=== PATIENT | male | born 2000 | race African-American/Black ===

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

== ENCOUNTER 2019-02-20 10:26 | Emergency (ER) | payer OTHER ==
[~2019-02-20] VITALS: Ht 185.4 cm; Wt 106.8 kg
[2019-02-20 10:29] VITALS: Ht 185.4 cm; Wt 106.8 kg
[2019-02-20 12:03] VITALS: BP 126/83
== END 2019-02-20 12:04 | disposition home or self-care (01) ==
LOC: D.ER 10:26
DX: B88.0 Other acariasis (principal)

== ENCOUNTER 2020-01-30 13:37 | Emergency (ER) | payer SELFPAY ==
[~2020-01-30] VITALS: Ht 185.4 cm; Wt 104.5 kg
[2020-01-30 14:11] VITALS: Ht 185.4 cm; Wt 104.5 kg
[2020-01-30] MEDS ORDERED: DEBROX OTIC15 ML EACH EAR (15:36)
[2020-01-30 15:39] VITALS: BP 129/79
== END 2020-01-30 15:41 | disposition home or self-care (01) ==
LOC: D.ER 13:37
DX: H61.23 Impacted cerumen, bilateral (principal); H92.02 Otalgia, left ear

== ENCOUNTER 2020-03-07 15:37 | Emergency (ER) | payer MEDICAID ==
[~2020-03-07] VITALS: Ht 185.4 cm; Wt 100.0 kg
[~2020-03-07 15:37] MED LIST: DEBROX OTIC15 ML EACH EAR
[2020-03-07 15:44] VITALS: Ht 185.4 cm; Wt 100.0 kg
[2020-03-07 17:19] LABS: BASOPHILS 0.1 % (0-2); EOSINOPHILS 0.2 % (0-7); HEMATOCRIT 51.8 % (42.0-54.0); HEMOGLOBIN 17.6 g/dL (13.5-17.5); IMMATURE GRANULOCYTES 0.2 % (0-5); LYMPHOCYTES 14.7 % (15-50); MCH 27.9 pg (26.0-34.0); MCV 82.1 fL (80.0-100.0); MEAN PLATELET VOLUME 10.1 fL (7.4-10.4); MONOCYTES 8.1 % (2-11); NEUTROPHILS 76.7 % (40-80); PLATELET COUNT 189 10x3/uL (130-400); RBC 6.31 10x6/uL (4.20-6.10); RDW 13.5 % (11.5-14.5); WBC 9.7 10x3/uL (4.8-10.8)
[2020-03-07 17:31] LABS: ANION GAP 12.4 mmol/L (8-16); CALCIUM 9.6 mg/dL (8.5-10.1); CARBON DIOXIDE 29.1 mmol/L (21.0-32.0); CREATININE - SERUM 1.3 mg/dL (0.6-1.3); POTASSIUM - SERUM 3.5 mmol/L (3.5-5.1)
[2020-03-07 17:37] LABS: ALBUMIN 4.7 g/dL (3.4-5.0); BILIRUBIN - TOTAL 0.96 mg/dL (0.2-1.3); PROTEIN - SERUM 9.1 g/dL (6.4-8.2)
[2020-03-07] MEDS ORDERED: BACTRIM 400-801 TAB PO (19:41)
[2020-03-07] MEDS ORDERED: TYLENOL W/CODEI1 TAB PO (19:41)
[2020-03-07] MEDS ORDERED: VIBRAMYCIN 100100 MG PO (19:41)
[2020-03-07 20:39] VITALS: BP 125/74
== END 2020-03-07 20:40 | disposition home or self-care (01) ==
LOC: D.ER 15:37
PROVIDERS: Family Medicine
DX: L02.31 Cutaneous abscess of buttock (principal)

== ENCOUNTER 2020-07-07 00:08 | Emergency (ER) | payer OTHER ==
[~2020-07-07] VITALS: Ht 185.4 cm; Wt 110.0 kg
[~2020-07-07 00:08] MED LIST changes: +BACTRIM 400-801 TAB PO; +TYLENOL W/CODEI1 TAB PO; +VIBRAMYCIN 100100 MG PO
[2020-07-07 00:12] VITALS: BP 147/75; Ht 185.4 cm; Wt 110.0 kg
[2020-07-07 00:54] LABS: HEMATOCRIT 46.8 % (42.0-54.0); HEMOGLOBIN 15.4 g/dL (13.5-17.5); MCH 27.2 pg (26.0-34.0); MCHC 32.9 g/dL (31.0-37.0); MCV 82.5 fL (80.0-100.0); MEAN PLATELET VOLUME 9.5 fL (7.4-10.4); NEUTROPHILS 68.9 % (40-80); PLATELET COUNT 193 10x3/uL (130-400); RBC 5.67 10x6/uL (4.20-6.10); RDW 13.7 % (11.5-14.5); WBC 6.6 10x3/uL (4.8-10.8)
[2020-07-07 01:02] LABS: CALC OSMOLALITY 285 mosm/kg (275-300); CALCIUM 8.8 mg/dL (8.5-10.1); CARBON DIOXIDE 27.6 mmol/L (21.0-32.0); CHLORIDE - SERUM 107 mmol/L (98-107); CREATININE - SERUM 1.1 mg/dL (0.6-1.3); GLUCOSE 94 mg/dL (74-106); POTASSIUM - SERUM 3.7 mmol/L (3.5-5.1); SODIUM 144 mmol/L (136-145); UREA NITROGEN 10 mg/dL (7-18); eGFR NON AFRICAN AMERICAN 90 mL/min (90-120)
[2020-07-07 01:22] LABS: ALKALINE PHOSPHATASE 49 U/L (30-120); ALT (SGPT) 16 U/L (10-68); BILIRUBIN - TOTAL 0.27 mg/dL (0.2-1.3); C-REACTIVE PROTEIN 2.9 mg/dL (0.0-0.9); FERRITIN 67 ng/mL (3-244); PROTEIN - SERUM 7.3 g/dL (6.4-8.2)
[2020-07-07] MEDS ORDERED: TESSALON PERLE100 MG PO (01:59)
[2020-07-07] MEDS ORDERED: OMNICEF300 MG PO (01:59)
[2020-07-07] MEDS ORDERED: ALBUTEROL SULF8.5 GM INH (01:59)
== END 2020-07-07 02:50 | disposition home or self-care (01) ==
LOC: D.ER 00:08
PROVIDERS: Family Medicine
DX: Z20.828 Contact with and (suspected) exposure to other viral communicable diseases (principal); R50.9 Fever, unspecified; J06.9 Acute upper respiratory infection, unspecified; Z72.0 Tobacco use; R06.02 Shortness of breath; R05 Cough

== ENCOUNTER 2020-07-09 23:40 | Emergency (ER) | payer OTHER ==
[~2020-07-09] VITALS: Ht 185.4 cm; Wt 65.9 kg
[~2020-07-09 23:40] MED LIST changes: +ALBUTEROL SULF8.5 GM INH; +OMNICEF300 MG PO; +TESSALON PERLE100 MG PO
[2020-07-09 23:42] VITALS: Ht 185.4 cm; Wt 65.9 kg
[2020-07-10 00:13] LABS: BASOPHILS 0.2 % (0-2); EOSINOPHILS 2.5 % (0-7); HEMATOCRIT 45.7 % (42.0-54.0); HEMOGLOBIN 15.3 g/dL (13.5-17.5); IMMATURE GRANULOCYTES 0.2 % (0-5); LYMPHOCYTES 48.8 % (15-50); MCH 27.2 pg (26.0-34.0); MCHC 33.5 g/dL (31.0-37.0); MCV 81.2 fL (80.0-100.0); MONOCYTES 9.7 % (2-11); NEUTROPHILS 38.6 % (40-80); PLATELET COUNT 221 10x3/uL (130-400); RBC 5.63 10x6/uL (4.20-6.10); RDW 13.8 % (11.5-14.5)
[2020-07-10 00:24] LABS: CALC OSMOLALITY 281 mosm/kg (275-300); CALCIUM 9.5 mg/dL (8.5-10.1); CARBON DIOXIDE 26.1 mmol/L (21.0-32.0); CHLORIDE - SERUM 105 mmol/L (98-107); CREATININE - SERUM 1.2 mg/dL (0.6-1.3); GLUCOSE 90 mg/dL (74-106); POTASSIUM - SERUM 3.5 mmol/L (3.5-5.1); SODIUM 142 mmol/L (136-145); UREA NITROGEN 11 mg/dL (7-18); eGFR NON AFRICAN AMERICAN 81 mL/min (90-120)
[2020-07-10 00:30] LABS: ALKALINE PHOSPHATASE 50 U/L (30-120); ALT (SGPT) 13 U/L (10-68); BILIRUBIN - TOTAL 0.41 mg/dL (0.2-1.3); MAGNESIUM - SERUM 2.2 mg/dL (1.8-2.4); PROTEIN - SERUM 7.7 g/dL (6.4-8.2)
[2020-07-10 00:32] LABS: UDS - AMPHET POSITIVE QUAL (NEGATIVE); UDS - BARB NEGATIVE QUAL (NEGATIVE); UDS - BENZO NEGATIVE QUAL (NEGATIVE); UDS - COCAINE NEGATIVE QUAL (NEGATIVE); UDS - OPIATE NEGATIVE QUAL (NEGATIVE); UDS - PCP NEGATIVE QUAL (NEGATIVE); UDS - THC POSITIVE QUAL (NEGATIVE)
[2020-07-10 00:40] LABS: BILIRUBIN NEGATIVE (NEGATIVE); KETONE NEGATIVE (NEGATIVE); NITRITE NEGATIVE (NEGATIVE); UROBILINOGEN NORMAL mg/dL (< 2)
[2020-07-10 00:41] LABS: BACTERIA FEW HPF (NONE SEEN); EPITHELIAL CELLS 0-5 /hpf (0-5); WHITE CELLS - URINE 0-5 HPF (0-1)
[2020-07-10] MEDS ORDERED: MACROBID100 MG PO (01:09)
[2020-07-10 03:08] VITALS: BP 124/69
== END 2020-07-10 03:09 | disposition home or self-care (01) ==
LOC: D.ER 23:40
PROVIDERS: Family Medicine
DX: F15.10 Other stimulant abuse, uncomplicated (principal); R46.89 Other symptoms and signs involving appearance and behavior; N39.0 Urinary tract infection, site not specified

== ENCOUNTER 2020-11-20 15:06 | Inpatient (IN) | payer OTHER ==
[~2020-11-20] VITALS: Ht 185.4 cm; Wt 98.6 kg
[~2020-11-20 15:06] MED LIST changes: +MACROBID100 MG PO
--- NOTE | 2020-11-20 16:41 | NUR ---
PT ASKED TO CONTACT MOTHER, mOTHER WAS CINTACTED BY THIS RN, STATES THAT IF PT STAYS OR NEED SSURGERY FOR HER TO PLEASE BE CONTACTED.
[2020-11-20 17:28] LABS: BASOPHILS 0.2 % (0-2); EOSINOPHILS 0.5 % (0-7); HEMATOCRIT 39.1 % (42.0-54.0); IMMATURE GRANULOCYTES 0.2 % (0-5); LYMPHOCYTE ABS# 1.24 10x3/uL (1.32-3.57); LYMPHOCYTES 19.7 % (15-50); MCH 27.5 pg (26.0-34.0); MCHC 33.2 g/dL (31.0-37.0); MCV 82.7 fL (80.0-100.0); MEAN PLATELET VOLUME 9.8 fL (7.4-10.4); MONOCYTES 14.6 % (2-11); NEUTROPHILS 64.8 % (40-80); PLATELET COUNT 195 10x3/uL (130-400); RBC 4.73 10x6/uL (4.20-6.10); RDW 13.9 % (11.5-14.5); WBC 6.3 10x3/uL (4.8-10.8)
[2020-11-20 17:37] LABS: APTT 25.1 SECONDS (22.8-39.4); INR 1.25 (0.85-1.17); PROTIME 14.6 SECONDS (11.6-15.0)
[2020-11-20 17:41] LABS: CALC OSMOLALITY 281 mosm/kg (275-300); CALCIUM 8.5 mg/dL (8.5-10.1); CHLORIDE - SERUM 109 mmol/L (98-107); CREATININE - SERUM 0.9 mg/dL (0.6-1.3); GLUCOSE 84 mg/dL (74-106); POTASSIUM - SERUM 3.7 mmol/L (3.5-5.1); SODIUM 142 mmol/L (136-145); UREA NITROGEN 13 mg/dL (7-18); eGFR NON AFRICAN AMERICAN > 90 mL/min (90-120)
[2020-11-20 17:47] LABS: ALBUMIN 3.5 g/dL (3.4-5.0); ALKALINE PHOSPHATASE 47 U/L (30-120); ALT (SGPT) 16 U/L (10-68); BILIRUBIN - TOTAL 0.83 mg/dL (0.2-1.3); PROTEIN - SERUM 5.9 g/dL (6.4-8.2)
[2020-11-20 18:24] VITALS: BP 124/69
--- NOTE | 2020-11-20 19:03 | NUR ---
PT REPORT GIVEN TO OSKAR SUTTON, WITH VERBAL UNDERSTANDING THE 2 MEDS ARE DUE AT THIS TIME. SHE AGREED TO SEND PT.
--- NOTE | 2020-11-20 20:00 | NUR ---
ADMIMITED TO ROOM FROM ER ALERT AND ORIENTIATED, IMOBLIZER IN PLACE TO LEFT KNEE, GOOD PEDAL PULSES NOTED, SEE SHIFT ASSESSMENT, CALL LIGHT IN REACH
[2020-11-20 20:10] VITALS: BP 129/80; Ht 185.4 cm; Wt 98.6 kg
[2020-11-21 04:13] VITALS: BP 102/60
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
[2020-11-21 06:58] VITALS: BP 115/65
--- NOTE | 2020-11-21 07:30 | NUR ---
RESTING QUIETLY WITH EYES CLOSED. NO NEEDS NOTED.
--- NOTE | 2020-11-21 12:00 | NUR ---
NO CHANGES AT THIS TIME. DENIES NEEDS.
[2020-11-21 12:38] VITALS: BP 114/61
--- NOTE | 2020-11-21 15:28 | NUR ---
URINE SPECIMEN COLLECTED. REQUESTED AND GIVEN 4MG MORPHINE SLOW IVP FOR C/O LEFT LEG PAIN LEVEL 6. WILL MONITOR.
[2020-11-21 16:44] LABS: BILIRUBIN NEGATIVE (NEGATIVE); KETONE LARGE mg/dL (NEGATIVE); NITRITE NEGATIVE (NEGATIVE); UROBILINOGEN NORMAL mg/dL (< 2)
[2020-11-21 16:54] LABS: WHITE CELLS - URINE 25-50 HPF (0-1)
[2020-11-21 16:55] LABS: BACTERIA FEW HPF (NONE SEEN); SQUAMOUS EPITHELIAL NONE SEEN HPF (0-4)
--- NOTE | 2020-11-21 17:15 | NUR ---
DR GOLDMAN HERE AND TALKED WITH PATIENT WHY NEED TO CANCEL SURGERY UNTILL TOMMORROW. PATIENT OK WITH THIS. DINNER TRAY ORDERED.
--- NOTE | 2020-11-21 17:47 | NUR ---
TRANSFERRED TO ROOM 2231 VIA BED. PATIENT IS AGREEABLE TO TRANSFER.
[2020-11-21 20:00] VITALS: BP 125/76
--- NOTE | 2020-11-21 20:00 | NUR ---
ALERT TALKING ON PHONE, REPORTS PAIN OF 6/10, IMOBLIZER IN PLACE TO LEFT KNEE, SEE SHIFT ASSESSMENT, CALL LIGHT IN REACH
[2020-11-22] VITALS: BP 114/57
[2020-11-22 04:00] VITALS: BP 113/52
--- NOTE | 2020-11-22 07:39 | NUR ---
ALERT AND ORIENTED. TEARFUL AND IN PAIN. PRN PAIN MEDICATION GIVEN. DENIES FURTHER NEEDS. ASSESSMENT COMPLETE. BED LOW. CALL AMAYA AND PERSONAL ITEMS IN REACH. WILL CONTINUE TO MONITOR.
[2020-11-22 08:15] VITALS: BP 138/70
[2020-11-22 13:27] VITALS: BP 124/73
--- NOTE | 2020-11-22 18:06 | NUR ---
PATIENT STATES PAIN 8/10 AFTER 2 MG OF DILADED AND 25 DEM AND 30 TORADOL.
[2020-11-22 18:18] VITALS: BP 131/86
--- NOTE | 2020-11-22 18:28 | NUR ---
PATIENT RETURNED FROM PROCEDURE. VITALS STABLE. DRSG C/D/I. WILL CONTINUE TO MONITOR.
[2020-11-22 20:00] VITALS: BP 122/71
--- NOTE | 2020-11-22 20:00 | NUR ---
AROUSES EASILY TO VERBAL STIMULI. RESP EVEN AND UNALBORED. NO DISTRESS NOTED.O2 @ 2L PER NC ON. IV TO LFA INTACT WITHOUT REDNESS OR EDEMA NOTED KNEE IMMOBILIZER INTACT TO LEFT KNEE. DRESSING DRY/INTACT..CL IN REACH
[2020-11-23 00:05] VITALS: BP 122/56
[2020-11-23 04:59] VITALS: BP 111/56
--- NOTE | 2020-11-23 08:25 | NUR ---
AAOX4 UPON ENTERING. ADMINISTERED MORNING MEDICATIONS, NO DIFFICULTIES. RESTING COMFORTABLY IN BED. DENIES ANY NEEDS AT THIS TIME. BED IN LOWEST POSITION, BED RAILS X2, CALL LIGHT WITHIN REACH. WILL CONTINUE POC.
[2020-11-23 08:54] VITALS: BP 122/62
--- NOTE | 2020-11-23 12:08 | NUR ---
ADMINISTERED PRN MORPHINE 4MG FOR 6/10 IN LEFT LEG AT INCISION SITE. TOLERATED WELL. RESTING IN BED. DENIES ANY NEEDS AT THIS TIME. WILL CONTINUE POC.
--- NOTE | 2020-11-23 13:28 | NUR ---
HUNG IV ABX, TOLERATING WELL. RESTING COMFORTABLY IN BED. DENIES ANY NEEDS. WILL CONTINUE POC.
--- NOTE | 2020-11-23 13:42 | NUR ---
I have reviewed this patient and I concur with the Shift Assessment completed by the Licensed Practical Nurse today this shift.
[2020-11-23 14:48] VITALS: BP 112/62
--- NOTE | 2020-11-23 15:59 | NUR ---
ADMINISTERED PRN MORPHINE FOR INCISIONAL PAIN IN LEFT LEG. RESTING IN BED, TEARFUL FROM PAIN, PATIENT REPORTS. DENIES ANY NEEDS AT THIS TIME. WILL CONTINUE POC.
--- NOTE | 2020-11-23 17:24 | NUR ---
ADMINISTERED MEDICAITON, TOLERATED WELL. UPRIGHT IN BED EATING DINNER. DENIES ANY NEEDS AT THIS TIME. WILL CONTINUE POC.
[2020-11-23 17:51] VITALS: BP 111/54
[2020-11-23 20:00] VITALS: BP 122/62
--- NOTE | 2020-11-23 20:10 | NUR ---
LYING QUIELTY WITH NO DISTRESS NOTED. RESP UNALBORED. IV TO LFA INTACT WITHOUT REDNESS OR EDEMA NOTE. KNEE IMMOBILIZER INTACT.DRESSING CLEAN DRY/INTACT. CL IN REACH
[2020-11-24] VITALS: BP 106/55
[2020-11-24 04:00] VITALS: BP 126/51
--- NOTE | 2020-11-24 04:38 | NUR ---
I have reviewed this patient and I concur with the Shift Assessment completed by the Licensed Practical Nurse today this shift.
[2020-11-24 05:13] LABS: HEMATOCRIT 37.9 % (42.0-54.0); HEMOGLOBIN 12.7 g/dL (13.5-17.5); MCH 27.3 pg (26.0-34.0); MCHC 33.5 g/dL (31.0-37.0); MCV 81.5 fL (80.0-100.0); MEAN PLATELET VOLUME 9.6 fL (7.4-10.4); RBC 4.65 10x6/uL (4.20-6.10); RDW 13.3 % (11.5-14.5); WBC 4.9 10x3/uL (4.8-10.8)
--- NOTE | 2020-11-24 08:25 | NUR ---
PT RESTING QUIETLY IN BED. RESP EVEN AND UNLABORED. PT REPORTS PAIN 9/10 AT THIS TIME, PAIN MEDICATION ADMINISTERED PER MD ORDERS. IV TO LEFT FOREARM WITH 1/2 NS @ 75ML/HR INFUSING VIA PUMP. SITE WITHOUT REDNESS OR EDEMA. IMMOBILIZER NOTED TO LEFT LOWER EXTREMITY. EXTREMITY WARM TO TOUCH. PULSES PALPABLE. DENIES FURTHER NEEDS AT THIS TIME. CL WITHIN REACH. ENCOURAGED TO CALL WITH NEEDS. CONTINUE POC
[2020-11-24 09:27] VITALS: BP 125/70
[2020-11-24 15:22] VITALS: BP 139/73
[2020-11-24 18:00] VITALS: BP 131/62
--- NOTE | 2020-11-24 19:00 | NUR ---
BEDSIDE REPORT RECEIVED AND CARE OF PT ASSUMED. PT LYING IN LOW SUÁREZ'S POSITION VISITING WITH FAMILY MEMBER. IV TO LEFT FA PATENT WITH 1/2 NS INFUSING AT 75 ML/HR. KNEE IMMOBILIZER IN PLACE ON LEFT KNEE. LLE WARM AND ALL PULSES PALPATED. WILL MONITOR FOR NEEDS.
[2020-11-24 20:00] VITALS: BP 128/73
--- NOTE | 2020-11-24 20:00 | NUR ---
HS MEDICATIONS GIVEN TO INCLUDE MORPHINE 4 MG IVP PER REQUEST FOR ACHING PAIN AT LEVEL 6/10 IN LEFT LEG. WILL MONITOR FOR EFFECTIVENESS.
--- NOTE | 2020-11-24 20:55 | NUR ---
PT REPORT PAIN LEVEL DOWN TO 2/10 AT THIS ASSESSMENT. WILL CONTINUE TO MONITOR FOR NEEDS.
--- NOTE | 2020-11-25 00:07 | NUR ---
GAVE NORCO 7.5 X2 TABS PO PER REQUEST FOR THROBBING, SHARP PAIN OF LEFT LEG AT LEVEL 7/10. WILL MONITOR FOR EFFECTIVENESS.
[2020-11-25 04:00] VITALS: BP 116/62
--- NOTE | 2020-11-25 04:35 | NUR ---
PT REPORTS THAT NORCO ARE CONTROLLING PAIN WELL. GAVE X1 NORCO 7.5MG PO PER REQUEST FOR SHARP PAIN AT LEVEL 6/10 TO LEFT LEG. WILL MONITOR FOR EFFECTIVENESS.
[2020-11-25 08:29] VITALS: BP 131/68
[2020-11-25 09:25] LABS: HEMATOCRIT 38.7 % (42.0-54.0); HEMOGLOBIN 12.8 g/dL (13.5-17.5); MCH 27.1 pg (26.0-34.0); MCHC 33.1 g/dL (31.0-37.0); MCV 81.8 fL (80.0-100.0); MEAN PLATELET VOLUME 10.1 fL (7.4-10.4); RBC 4.73 10x6/uL (4.20-6.10); RDW 13.1 % (11.5-14.5); WBC 4.2 10x3/uL (4.8-10.8)
--- NOTE | 2020-11-25 11:58 | MORECARE ---
CASE MANAGEMENT DISCHARGE SUMMARY PATIENT: FRANCINE REYES UNIT: [id number] ADM DATE: 11/20/20 AGE: 20 : 99 SEX: M ROOM/BED: D.2231 AUTHOR: LURDES NOEL PHYSICIAN: REFERRING PHYSICIAN: HUAN GOLDMAN MD DATE OF SERVICE: 11/25/20 Discharge Plan Patient Name: [facility]ANC[facility]YES [facility] [facility] 2000 Planned Disposition: Anticipated Discharge Date: Discharge Date: Expected LOS: Initial Reviewer: [email or web address] Initial Review Date: 11/20/2020 Generated: 11/25/20 12:58 pm Patient Name: FRANCINE REYES Page [phone] at 1158 All edits/amendments must be made on the electronic document DICTATION DATE: 11/25/20 1158 FINANCIAL AID OFFICER: ELIJAH 11/25/20 1158 RPT#: [id number] DC DATE: STATUS: ADM IN [facility] [address] [place] [address] END OF REPORT
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
[2020-11-25 12:43] VITALS: BP 100/50
[2020-11-25] MEDS ORDERED: HYDROCODONE-AC1 EAC2 PO (14:55)
[2020-11-25 16:23] VITALS: BP 124/67
--- NOTE | 2020-11-26 10:24 | MORECARE ---
CASE MANAGEMENT DISCHARGE SUMMARY PATIENT: FRANCINE REYES UNIT: [id number] ADM DATE: 11/20/20 AGE: 20 : 99 SEX: M ROOM/BED: D.2231 AUTHOR: SADIE,DOC PHYSICIAN: REFERRING PHYSICIAN: HUAN GOLDMAN MD DATE OF SERVICE: 11/26/20 Discharge Plan Patient Name: FRANCINE REYES Facility: [facility]:[place] : 2000 Planned Disposition: Anticipated Discharge Date: Discharge Date: 11/25/2020 Expected LOS: Initial Reviewer: [email or web address] Initial Review Date: 11/20/2020 Generated: 11/26/20 11:23 am Comments DCP- Discharge Planning Updated by [email or web address]: Nhi Turk on 11/25/20 11:[address] Patient Name: FRANCINE REYES Admission Status: ER Accout number: [id number] Admission Date: 11-20-2020 : 2000 Admission Diagnosis:DISPLACED BICONDYLAR FRACTURE OF LEFT TIBIA, INIT Attending: MARGI Current LOS: 5 Anticipated DC Date: Planned Disposition: Primary Insurance: [employer] MANAGED MEDICAID Discharge Planning Comments: CM met with patient at bedside after obtaining verbal consent. CM discussed availability / needs of home health, REHAB and medical equipment. Patient plans to stay with his mom while recovering from surgery. He will need a rolling walker for home and would like Home Health. [facility] signed for [facility] for DME and Home Health of next available. Orders faxed, patient will need to wait until walker is delivered before leaving the hospital. CM to follow and assist as needed. Machine Cloth Trimmer: Nhi Turk DCPIA - Discharge Planning Initial Assessment Updated by [email or web address]: Nhi Turk on 11/25/20 11:59 am * Is the patient Alert and Oriented? Yes * PCP NONE * [facility] * Preadmission Environment Home Alone * ADLs Independent * Community resources currently utilized None * Additional services required to return to the preadmission environment? Yes * Can the patient safely return to the preadmission environment? Yes * Has this patient been hospitalized within the prior 30 days at any hospital? No Coverage Notice Reviewer: [email or web address] - Nhi Turk Notice Issued Date-Time: 11/25/2020 12:09 Notice Type: Patient Choice Letter Notice Delivered To: Relationship to Patient: Safety And Skill Based Pay Manager Name: Delivery Method: - Shauna Days: Prior Verbal Notification: Recipient Understood Notice: Yes Recipient Signature: Yes Med Rec Note Co-signed by Attending: Coverage Notice Comment: [facility]G [facility] 4 OR NEXT AVAILABLE Last DP export: 11/25/20 11:06 am Patient Name: FRANCINE REYES Page [phone] at 1024 All edits/amendments must be made on the electronic document DICTATION DATE: 11/26/20 1023 PIGEON FANCIER: ELIJAH 11/26/20 1023 RPT#: [id number] DC DATE:11/25/20 STATUS: DIS IN [facility] [address] [place] [address] END OF REPORT
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
== END 2020-11-25 17:53 | disposition home health service (06) | DRG 494 ==
LOC: D.ER 15:06 → D.EDHOLD 17:04 → D.MS 17:04 → D.M3 17:04 → D.MS 11-21 18:12
PROVIDERS: Family Medicine; ADMIT Orthopaedic Surgery; ATTEND Orthopaedic Surgery
PROC: 0QSH04Z Reposition Left Tibia with Internal Fixation Device, Open Approach (ICD-10-PCS; principal; 2020-11-22 13:00)
DX: S89.112A Salter-Harris Type I physeal fracture of lower end of left tibia, initial encounter for closed fracture (principal); V09.9XXA Pedestrian injured in unspecified transport accident, initial encounter; S80.211A Abrasion, right knee, initial encounter